=== PATIENT | female | born 1960 | race Caucasian/White ===

== ENCOUNTER → 2017-05-04 | Outpatient (CLI) | payer OTHER ==
[~2017-05-04] MED LIST: ALPR1TAB2 PO; ASPI1TAB2 PEG; CARI350T PO; HYDR-3240 PO; HYDR-3307 PO; OMNIPAQUE 350 MG/ML, 100ML BOTTLE ONE
== END | disposition home or self-care (01) ==
LOC: CFH 13:58
PROVIDERS: ATTEND Surgery
DX: K40.90 Unilateral inguinal hernia, without obstruction or gangrene, not specified as recurrent (principal)
CPT/HCPCS: 74177; Q9967

== ENCOUNTER → 2017-07-10 | Outpatient (CLI) | payer OTHER ==
[~2017-07-10] MED LIST changes: -OMNIPAQUE 350 MG/ML, 100ML BOTTLE ONE
== END | disposition home or self-care (01) ==
LOC: STAR 12:43
PROVIDERS: ATTEND Surgery
DX: Z02.9 Encounter for administrative examinations, unspecified (principal)

== ENCOUNTER 2017-07-15 06:59 | Day surgery (SDC) | payer OTHER ==
[~2017-07-15] VITALS: Ht 165.1 cm; Wt 61.5 kg
[~2017-07-15 06:59] MED LIST changes: +ASPI-691 PEG; -ASPI1TAB2 PEG
[2017-07-15] MEDS ORDERED: LACTATED RINGERS 1,000 ML IV SCH (07:17)
[2017-07-15 07:39] VITALS: BP 99/64
[2017-07-15] MEDS ORDERED: BUPIVACAINE/PF 0.5% ONE (08:54)
[2017-07-15] MEDS ORDERED: EPINEPHRINE 1 MG/ML, 1ML ONE (08:54)
[2017-07-15] MEDS ORDERED: FENTANYL PF 100 MCG/2ML ONE ×4 (09:12→10:49)
[2017-07-15] MEDS ORDERED: DEXAMETHASONE 4 MG/ML, 1ML ONE (09:12)
[2017-07-15] MEDS ORDERED: ROCURONIUM 10 MG/ML ONE (09:12)
[2017-07-15] MEDS ORDERED: CEFAZOLIN 1,000 MG ONE (09:12)
[2017-07-15] MEDS ORDERED: ONDANSETRON 2MG/ML, 2ML ONE (09:12)
[2017-07-15] MEDS ORDERED: NEOSTIGMINE 1 MG/ML, 10ML ONE (09:12)
[2017-07-15] MEDS ORDERED: PROPOFOL 10 MG/ML, 20ML ONE (09:12)
[2017-07-15] MEDS ORDERED: MIDAZOLAM 1 MG/ML, 2ML ONE (09:12)
[2017-07-15] MEDS ORDERED: GLYCOPYRROLATE 0.2MG/1ML, 5ML ONE ×2 (09:12)
[2017-07-15] MEDS ORDERED: OXYcodone 5 MG/5 ML ORAL.SOL UDC PO PRN (09:30)
[2017-07-15] MEDS ORDERED: ONDANSETRON 2MG/ML, 2ML IVPush PRN (09:30)
[2017-07-15] MEDS ORDERED: MEPERIDINE/PF 25MG/0.5ML IVPush PRN (09:30)
[2017-07-15] MEDS ORDERED: PROMETHAZINE 25 MG/ML, 1ML IV PRN (09:30)
[2017-07-15] MEDS ORDERED: HYDROmorphone 1 MG/ML, 1ML IV PRN (09:30)
[2017-07-15] MEDS ORDERED: ACETAMINOPHEN 325 MG TABLET PO PRN (09:30)
[2017-07-15] MEDS ORDERED: LABETALOL 5MG/ML, 20ML IV PRN (09:30)
[2017-07-15] MEDS ORDERED: hydrALAzine 20 MG/ML, 1ML IV PRN (09:30)
[2017-07-15] MEDS ORDERED: BACITRACIN 50,000 UNIT ONE (09:45)
[2017-07-15] MEDS ORDERED: LIDOCAINE 1%, 20ML INFIL ONE (09:56)
[2017-07-15] MEDS ORDERED: ACETAMINOPHEN 650 MG/20.3 ML UDC ONE (10:49)
[2017-07-15] MEDS ORDERED: OXYcodone 5 MG/5 ML ORAL.SOL UDC ONE (10:50)
[2017-07-15] MEDS: FENTANYL PF 100 MCG/2ML IV PRN ×2 (10:59→11:31)
[2017-07-15] MEDS ORDERED: KETOROLAC 30 MG/1 ML ONE (11:00)
[2017-07-15] MEDS ORDERED: DIPHENHYDRAMINE 50 MG/ML, 1ML ONE (11:16)
[2017-07-15] MEDS ORDERED: KETOROLAC 30 MG/1 ML IVPush SCH (11:30)
[2017-07-15] MEDS ORDERED: DIPHENHYDRAMINE 50 MG/ML, 1ML IVPush PRN (11:30)
== END 2017-07-15 13:05 ==
LOC: OUT 06:59
PROVIDERS: ATTEND Surgery
DX: K43.2 Incisional hernia without obstruction or gangrene (principal); Z88.8 Allergy status to other drugs, medicaments and biological substances; Z88.6 Allergy status to analgesic agent; Z91.040 Latex allergy status; Z79.82 Long term (current) use of aspirin
CPT/HCPCS: 49560; 49568; C1781; J0171; J0690; J1100; J1200; J1885; J2250; J2405; J2704; J2710; J3010; J3490; J7120

== ENCOUNTER 2017-10-16 16:19 | Emergency (ER) | payer OTHER ==
[~2017-10-16] VITALS: Ht 165.1 cm; Wt 62.0 kg
[2017-10-16] MEDS ORDERED: SODIUM CHLORIDE FLUSH 10ML SYR IVF ONE ×2 (17:30)
[2017-10-16] MEDS ORDERED: SODIUM CHLORIDE 0.9% 1,000ML IVBOLUS ONE (17:30)
[2017-10-16 17:45] LABS: BASOPHILS # (AUTO) 0.01 x10^3/uL (0-0.1); BASOPHILS % (AUTO) 0 % (0-1); EOSINOPHILS # (AUTO) 0.02 x10^3/uL (0-0.4); EOSINOPHILS % (AUTO) 0 % (1-7); LYMPHOCYTES % (AUTO) 9 % (22-44); MD NO; MEAN CORPUSCULAR HEMOGLOBIN 32.8 pg (27.0-34.8); MEAN CORPUSCULAR HGB CONC 34.7 g/dL (32.4-35.8); MEAN CORPUSCULAR VOLUME 94.5 fL (80-100); MEAN PLATELET VOLUME 9.2 fL (7.4-10.4); MONOCYTES # (AUTO) 0.94 x10^3/uL (0.2-0.8); MONOCYTES % (AUTO) 11 % (2-9); NEUTROPHILS # (AUTO) 6.98 x10^3/uL (1.8-6.8); NEUTROPHILS % (AUTO) 80 % (42-75); PLATELET COUNT 166 x10^3/uL (130-400); RED BLOOD COUNT 4.46 x10^6/uL (3.82-5.3); RED CELL DISTRIBUTION WIDTH 12.7 % (9.6-15.2)
[2017-10-16 17:51] LABS: ALANINE AMINOTRANSFERASE 27 U/L (12-78); ALBUMIN 3.4 g/dL (3.4-5.0); ANION GAP 9 mmol/L (5-15); CALCIUM 9.3 mg/dL (8.5-10.1); CHLORIDE 103 mmol/L (98-107); CREATININE 0.77 mg/dL (0.55-1.02)
[2017-10-16 17:53] LABS: ALKALINE PHOSPHATASE 109 U/L (45-117); BILIRUBIN,TOTAL 0.7 mg/dL (0.2-1.0)
[2017-10-16 18:31] LABS: MICROSCOPIC INDICATED
[2017-10-16 18:32] LABS: CULTURE INDICATED? YES
[2017-10-16 19:00] LABS: RAPID INFLUENZA A Negative (Negative); RAPID INFLUENZA B Negative (Negative)
[2017-10-16 19:04] VITALS: BP 127/70
[2017-10-16] MEDS ORDERED: KETOROLAC 30 MG/1 ML ONE ×2 (19:16→19:18)
[2017-10-16] MEDS ORDERED: CEFTRIAXONE PMX 1GM/50ML 50 ML ONE (19:16)
[2017-10-16] MEDS ORDERED: KETOROLAC 30 MG/1 ML IVPush ONE (19:30)
[2017-10-16] MEDS ORDERED: CEFTRIAXONE PMX 1GM/50ML 50 ML IV ONE (19:30)
[2017-10-16] MEDS ORDERED: ACETAMINOPHEN 325 MG TABLET ONE (20:11)
[2017-10-16] MEDS ORDERED: ACETAMINOPHEN 325 MG TABLET PO ONE (20:30)
== END 2017-10-16 20:35 | disposition home or self-care (01) ==
LOC: ED 20:30
DX: N30.90 Cystitis, unspecified without hematuria (principal); M79.1 Myalgia; F17.200 Nicotine dependence, unspecified, uncomplicated; Z88.1 Allergy status to other antibiotic agents
CPT/HCPCS: 36415; 71010; 80053; 81001; 83690; 85025; 87077; 87086; 87186; 87400; 93005; 96361; 96365; 96375; 99285; J0696; J1885; J7030

== ENCOUNTER → 2017-12-31 | Outpatient (CLI) | payer OTHER ==
[2017-12-31 11:06] LABS: BASOPHILS # (AUTO) 0.03 x10^3/uL (0-0.1); BASOPHILS % (AUTO) 1 % (0-1); EOSINOPHILS # (AUTO) 0.13 x10^3/uL (0-0.4); EOSINOPHILS % (AUTO) 2 % (1-7); LYMPHOCYTES % (AUTO) 35 % (22-44); MD NO; MEAN CORPUSCULAR HEMOGLOBIN 32.8 pg (27.0-34.8); MEAN CORPUSCULAR HGB CONC 34.6 g/dL (32.4-35.8); MEAN CORPUSCULAR VOLUME 94.9 fL (80-100); MEAN PLATELET VOLUME 8.1 fL (7.4-10.4); MONOCYTES # (AUTO) 0.44 x10^3/uL (0.2-0.8); MONOCYTES % (AUTO) 8 % (2-9); NEUTROPHILS # (AUTO) 2.95 x10^3/uL (1.8-6.8); NEUTROPHILS % (AUTO) 54 % (42-75); PLATELET COUNT 190 x10^3/uL (130-400); RED CELL DISTRIBUTION WIDTH 13.2 % (9.6-15.2)
[2017-12-31 11:18] LABS: ALBUMIN 3.9 g/dL (3.4-5.0); ANION GAP 8 mmol/L (5-15); CALCIUM 8.8 mg/dL (8.5-10.1); CHLORIDE 111 mmol/L (98-107); CHOLESTEROL, TOTAL 186 mg/dL (140-239); HIGH-SENSITIVITY CRP 0.04 mg/dL (0.02-0.30)
[2017-12-31 11:44] LABS: ALANINE AMINOTRANSFERASE 24 U/L (12-78); ALKALINE PHOSPHATASE 94 U/L (45-117); BILIRUBIN,TOTAL 0.3 mg/dL (0.2-1.0); CREATININE 0.56 mg/dL (0.55-1.02); FOLATE LEVEL 9.9 ng/mL (3.1-17.5); FREE T4 (FREE THYROXINE) 0.87 ng/dL (0.76-1.46); HDL CHOL % 49 % (28-40); HDL CHOLESTEROL (DIRECT) 91 mg/dL (40-60); LDL CHOLESTEROL,CALCULATED 87 mg/dL (54-169); THYROID STIMULATING HORMONE 0.759 mIU/L (0.358-3.740); TOTAL PROTEIN 7.2 g/dL (6.4-8.2); TRIGLYCERIDES 42 mg/dL (50-200); VLDL CHOLESTEROL 8 mg/dL (0-25)
== END ==
LOC: LAB 10:52
PROVIDERS: ATTEND Family Medicine
DX: E78.5 Hyperlipidemia, unspecified (principal); E55.9 Vitamin D deficiency, unspecified; R53.83 Other fatigue
CPT/HCPCS: 36415; 80053; 80061; 82306; 82607; 82746; 84439; 84443; 84481; 85025; 86141; 86376; 86800

== ENCOUNTER 2018-10-25 06:10 | Day surgery (SDC) | payer OTHER ==
[~2018-10-25] VITALS: Ht 165.1 cm; Wt 65.3 kg
[~2018-10-25 06:10] MED LIST changes: +FENTANYL PF 250 MCG/5ML ONE; +MIDAZOLAM 1 MG/ML, 2ML ONE
[2018-10-25] MEDS ORDERED: LACTATED RINGERS 1,000 ML IV SCH (07:00)
[2018-10-25] MEDS ORDERED: LIDOCAINE-MPF 1%, 2ML INFIL ONE (07:00)
[2018-10-25] MEDS ORDERED: VARE1TAB21 PO (07:06)
[2018-10-25] MEDS ORDERED: SULF1TAB24 PO (07:06)
[2018-10-25] MEDS ORDERED: IBUP-1223 PO (07:06)
[2018-10-25] MEDS ORDERED: SCOPOLAMINE PATCH, 1.5MG PATCH.TD72 TD ONE (07:07)
[2018-10-25 07:14] VITALS: BP 108/73
[2018-10-25] MEDS ORDERED: EPINEPHRINE 1 MG/ML, 1ML ONE (07:18)
[2018-10-25] MEDS ORDERED: BUPIVACAINE/PF 0.25% ONE (07:18)
[2018-10-25] MEDS ORDERED: PROMETHAZINE 25 MG/ML, 1ML IV PRN (07:30)
[2018-10-25] MEDS ORDERED: LABETALOL 5MG/ML, 20ML IV PRN (07:30)
[2018-10-25] MEDS ORDERED: OXYcodone 5 MG/5 ML ORAL.SOL UDC PO PRN (07:30)
[2018-10-25] MEDS ORDERED: ONDANSETRON ODT 8 MG PO PRN (07:30)
[2018-10-25] MEDS ORDERED: ONDANSETRON 2MG/ML, 2ML IV PRN (07:30)
[2018-10-25] MEDS ORDERED: PROMETHAZINE 12.5 MG SUPP PR PRN (07:30)
[2018-10-25] MEDS ORDERED: PROMETHAZINE 25 MG SUPP PR PRN (07:30)
[2018-10-25] MEDS ORDERED: PROMETHAZINE 25 MG/ML, 1ML IM PRN ×2 (07:30)
[2018-10-25] MEDS ORDERED: HALOPERIDOL 5 MG/ML IV PRN (07:30)
[2018-10-25] MEDS ORDERED: HYDROmorphone 2 MG/ML, 1ML IVPush PRN (07:30)
[2018-10-25] MEDS ORDERED: MEPERIDINE/PF 25MG/0.5ML IVPush PRN (07:30)
[2018-10-25] MEDS ORDERED: ACETAMINOPHEN 325 MG TABLET PO PRN (07:30)
[2018-10-25] MEDS ORDERED: hydrALAzine 20 MG/ML, 1ML IV PRN (07:30)
[2018-10-25] MEDS ORDERED: CEFAZOLIN 1,000 MG ONE (08:32)
[2018-10-25] MEDS ORDERED: ROCURONIUM 10MG/ML,5ML ONE (08:32)
[2018-10-25] MEDS ORDERED: NEOSTIGMINE 1 MG/ML, 10ML ONE (08:32)
[2018-10-25] MEDS ORDERED: PROPOFOL 10 MG/ML, 20ML ONE (08:32)
[2018-10-25] MEDS ORDERED: GLYCOPYRROLATE 0.2MG/1ML, 5ML ONE (08:32)
[2018-10-25] MEDS ORDERED: ONDANSETRON 2MG/ML, 2ML ONE (08:32)
[2018-10-25] MEDS ORDERED: DEXAMETHASONE 4 MG/ML, 1ML ONE (08:32)
[2018-10-25] MEDS ORDERED: FENTANYL PF 100 MCG/2ML ONE (09:09)
[2018-10-25] MEDS ORDERED: ACETAMINOPHEN 650 MG/20.3 ML UDC ONE (09:09)
[2018-10-25] MEDS ORDERED: OXYcodone 5 MG/5 ML ORAL.SOL UDC ONE (09:10)
[2018-10-25] MEDS: FENTANYL PF 100 MCG/2ML IV PRN ×4 (09:15→09:40)
[2018-10-25] MEDS ORDERED: MEPERIDINE/PF 25MG/0.5ML ONE (09:55)
== END 2018-10-25 11:35 | disposition home or self-care (01) ==
LOC: OUT 06:10
PROVIDERS: ATTEND Plastic Surgery
DX: M79.89 Other specified soft tissue disorders (principal)
CPT/HCPCS: 15734; C1729; J0171; J0690; J1100; J2175; J2250; J2405; J2704; J2710; J3010; J3490; J7120

== ENCOUNTER 2019-10-25 09:50 | Outpatient (CLI) | payer OTHER ==
[~2019-10-25 09:50] MED LIST changes: -FENTANYL PF 250 MCG/5ML ONE; -HYDR-3307 PO; +HYDR-36 PO; +IBUP-1223 PO; -MIDAZOLAM 1 MG/ML, 2ML ONE; +SULF1TAB24 PO; +VARE1TAB21 PO
[2019-10-25 10:11] LABS: BASOPHILS # (AUTO) 0.03 x10^3/uL (0-0.1); BASOPHILS % (AUTO) 1 % (0-1); EOSINOPHILS # (AUTO) 0.21 x10^3/uL (0-0.4); EOSINOPHILS % (AUTO) 5 % (1-7); LYMPHOCYTES % (AUTO) 31 % (22-44); MD NO; MEAN CORPUSCULAR HEMOGLOBIN 32.7 pg (27.0-34.8); MEAN CORPUSCULAR HGB CONC 34.3 g/dL (32.4-35.8); MEAN CORPUSCULAR VOLUME 95.2 fL (80-100); MEAN PLATELET VOLUME 8.2 fL (7.4-10.4); MONOCYTES # (AUTO) 0.53 x10^3/uL (0.2-0.8); MONOCYTES % (AUTO) 12 % (2-9); NEUTROPHILS # (AUTO) 2.19 x10^3/uL (1.8-6.8); NEUTROPHILS % (AUTO) 51 % (42-75); PLATELET COUNT 173 x10^3/uL (130-400); RED CELL DISTRIBUTION WIDTH 13.1 % (9.6-15.2)
[2019-10-25 10:32] LABS: ALBUMIN 3.9 g/dL (3.4-5.0); ANION GAP 6 mmol/L (5-15); CALCIUM 8.9 mg/dL (8.5-10.1); CHLORIDE 108 mmol/L (98-107)
[2019-10-25 10:35] LABS: % IRON SATURATION 51 % (20-55); ALANINE AMINOTRANSFERASE 25 U/L (12-78); ALKALINE PHOSPHATASE 96 U/L (45-117); BILIRUBIN,TOTAL 0.6 mg/dL (0.2-1.0); CREATININE 0.68 mg/dL (0.55-1.02); IRON LEVEL 163 mcg/dL (50-170); TOTAL IRON BINDING CAPACITY 319 mcg/dL (250-450); TOTAL PROTEIN 7.2 g/dL (6.4-8.2)
== END 2019-10-25 23:59 | disposition home or self-care (01) ==
LOC: LAB 09:50
PROVIDERS: ATTEND Physician Assistant
DX: Z13.21 Encounter for screening for nutritional disorder (principal); R53.83 Other fatigue; R76.8 Other specified abnormal immunological findings in serum; Z80.9 Family history of malignant neoplasm, unspecified; Z91.040 Latex allergy status; Z91.048 Other nonmedicinal substance allergy status
CPT/HCPCS: 36415; 80053; 81256; 82150; 82248; 82728; 83540; 83550; 83690; 85025; 86704; 86706; 86708; 86803; 87521